=== PATIENT | female | born 1945 | race Caucasian/White ===

== ENCOUNTER → 2023-05-02 17:11 | Outpatient (REF) | payer MEDICARE, SELFPAY | LOC: MRI 3T 17:11 | PROVIDERS: ATTENDING PHYSICIAN Orthopaedic Surgery; FAMILY PHYSICIAN Internal Medicine | DX: M25.561 Pain in right knee (principal) | CPT/HCPCS: 73721 ==

== ENCOUNTER → 2023-05-15 12:51 | Outpatient (REF) | payer MEDICARE, SELFPAY ==
[2023-05-15 13:43] LABS: Hematocrit 35.8 % (37.0-47.0); Hemoglobin 12.3 g/dL (12.0-16.0); Mean Corp Hgb Conc. 34.4 g/dL (33.0-37.0); Mean Corpuscular Hgb 32.5 pg (27.0-31.0); Mean Corpuscular Volume 94.7 fL (81.0-99.0); Mean Platelet Volume 9.9 fL (7.4-10.4); Platelet Count 171 10^3/uL (130-400); Red Blood Cell Count 3.78 10^6/uL (4.20-5.40); Red Cell Dist. Width 12.5 % (11.5-14.5); White Blood Cell Count 3.5 10^3/uL (4.8-10.8)
== END ==
LOC: SDSPAT 12:51
PROVIDERS: ATTENDING PHYSICIAN Specialist; FAMILY PHYSICIAN Internal Medicine; OTHER PHYSICIAN Internal Medicine Rheumatology
DX: Z01.818 Encounter for other preprocedural examination (principal)
CPT/HCPCS: 36415; 85027

== ENCOUNTER 2023-05-23 06:14 | Day surgery (SDC) | payer MEDICARE, SELFPAY ==
[2023-05-15 13:18] VITALS: BMI 25.6
[2023-05-23] VITALS (8 sets, daily range): BP systolic 99–133; BP diastolic 51–69; BMI 25.6
[2023-05-23] MEDS: NORMOSOL-R 1000 IV (06:40)
[2023-05-23] MEDS: TYLENOL 1000 MG PO (06:48)
[2023-05-23] MEDS: CELEBREX 200 MG PO (06:48)
== END 2023-05-23 10:05 | disposition home or self-care (01) ==
LOC: SDS 06:14
PROVIDERS: ATTENDING PHYSICIAN Specialist; FAMILY PHYSICIAN Internal Medicine
DX: S83.231A Complex tear of medial meniscus, current injury, right knee, initial encounter (principal); X58.XXXA Exposure to other specified factors, initial encounter; M94.261 Chondromalacia, right knee
CPT/HCPCS: 29881

== ENCOUNTER → 2023-08-09 12:42 | Outpatient (REF) | payer MEDICARE, SELFPAY | LOC: HWRAD 12:42 | PROVIDERS: ATTENDING PHYSICIAN Internal Medicine Rheumatology; FAMILY PHYSICIAN Internal Medicine | DX: M81.0 Age-related osteoporosis without current pathological fracture (principal) | CPT/HCPCS: 77080 ==

== ENCOUNTER 2023-09-17 08:26 | Emergency (ER) | payer MEDICARE, SELFPAY ==
[2023-09-17] VITALS (7 sets, daily range): BP systolic 101–121; BP diastolic 55–93; BMI 25.0
[2023-09-17 11:04] LABS: % Basophils 0.7 % (0-2); % Eosinophils 1.1 % (0-6); % Immature Granulocytes 0.4 % (0-0.5); % Lymphocytes 27.6 % (20.5-51.1); % Neutrophils 62.2 % (42.2-75.2); Absolute Eosinophils 0.1 10^3/uL (0-0.7); Absolute Lymphocytes 1.2 10^3/uL (1.2-3.4); Absolute Monocytes 0.4 10^3/uL (0.1-0.6); Absolute Neutrophils 2.8 10^3/uL (1.4-6.5); Hematocrit 36.4 % (37.0-47.0); Hemoglobin 12.8 g/dL (12.0-16.0); Mean Corp Hgb Conc. 35.2 g/dL (33.0-37.0); Mean Corpuscular Hgb 32.9 pg (27.0-31.0); Mean Corpuscular Volume 93.6 fL (81.0-99.0); Mean Platelet Volume 9.6 fL (7.4-10.4); Nucleated Red Blood Cells % 0 %; Platelet Count 172 10^3/uL (130-400); Red Blood Cell Count 3.89 10^6/uL (4.20-5.40); Red Cell Dist. Width 12.7 % (11.5-14.5); White Blood Cell Count 4.5 10^3/uL (4.8-10.8)
[2023-09-17 11:05] LABS: Urine Albumin Negative (Neg - Trace); Urine Bilirubin Negative (Negative); Urine Character Clear (Clear); Urine Color Yellow; Urine Glucose Negative (Negative); Urine Ketone Negative (Negative); Urine Leukocyte 2+ (Negative); Urine Nitrite Negative (Negative); Urine Occult Blood Trace (Negative); Urine Urobilinogen Negative (Neg - 1+)
[2023-09-17 11:12] LABS: Urine Red Blood Cell 0-2 /HPF (0-2); Urine White Cell 0-2 /HPF (0-5)
--- NOTE | 2023-09-17 11:23 | ED.GENMED ---
History of Present Illness
General
Chief Complaint: Abdominal Symptoms
Source: patient
Exam Limitations: none
Time Seen by Provider: 09/17/23 10:51
Nursing documentation reviewed up to this point in time: agreed with
History of Present Illness
History of Present Illness:
Patient is a 78-year-old female with past medical history of A-fib on Eliquis presents to the ER for evaluation of right lower quadrant pain. She reports she noticed this a couple weeks ago which is on and off however is now gotten more persistent
and stronger. He woke up a couple times last night. She is nauseous with eating but is not vomited. She denies any urinary frequency urgency or dysuria. Denies any diarrhea constipation. No prior abdominal surgeries. She does admit to having
started a core exercise program and noticed that the pain started during this time of doing abdominal core work though she denies exact injury.
Past History
Past History
ED Past Medical History: HTN
ED Past Surgical History: Orthopedic
Social History
Tobacco: Non-smoker
Personal:
Living: with family
Family History
Family History: Negative Diabetes
Review of Systems
Review of Systems
Allergies reviewed?: Yes
All Other Systems: ROS reviewed and negative except as documented in HPI and ROS
Constitutional: Reports no symptoms; Denies fever, fatigue or chills
Respiratory: Reports no symptoms
Cardiac: Reports no symptoms
ABD/GI: Reports abdominal pain and nausea; Denies vomiting, diarrhea or constipated
: Reports no symptoms; Denies dysuria, flank pain, urgency or discharge
Musculoskeletal: Reports no symptoms
Skin: Reports no symptoms
Neurological: Reports no symptoms
Psychiatric: Reports no symptoms
Phy Exam
General Physical Exam
General Presentation: no apparent distress
General age: appears stated age
General Skin: warm and dry
General Habitus: normal
General Mental: alert
General Hydration: appears well hydrated
Gastrointestinal Exam
Gastrointestinal Exam: soft and other (mild rlq tenderness)
Neurological Exam
Neurological Exam: alert and oriented x3
Musculoskeletal Exam
Musculoskeletal Exam: full ROM
Skin Exam
Skin Exam: normal color and warm/dry
Psychiatric Exam
Psychiatric Exam: normal mood/affect
Course
Orders/Labs/Results
Orders:
Orders
09/17/23 10:56
Basic Metabolic Panel Urgent
Complete Blood Count/With Diff Urgent
Urinalysis Reflex To Culture Urgent
Date Specimen was Collected: 09/17/23
Time Specimen was Collected: 10:55
Urine Microscopic Reflex Cult Urgent
Urine Culture Urgent
HESHAM Source: U
Specimen Description:
Date Specimen was Collected: 09/17/23
Time Specimen was Collected: 10:55
09/17/23 11:25
CT Abd/pel W Iv And Oral Contr Urgent
Comment:
Reason For Exam: rlq pain
Iohexol [Omnipaque] See Protocol PO NOW STA
Abnormal Lab Results
09/17/23
10:56
WBC 4.5 L 10^3/uL
(4.8-10.8)
RBC 3.89 L 10^6/uL
(4.20-5.40)
Hct 36.4 L %
(37.0-47.0)
MCH 32.9 H pg
(27.0-31.0)
BUN 19 H mg/dl
(7-17)
Creatinine 0.5 L mg/dL
(0.6-1.0)
Ur Occult Blood Reflex Trace A
(Negative)
Leukocyte Esterase Rfl 2+ A
(Negative)
09/17/23 10:56
09/17/23 10:56
Vital Signs
Initial and Last Documented VS:
Initial Vital Signs
Temp Pulse Resp BP Pulse Ox
97.8 F 71 17 113/93 100
09/17/23 08:31 09/17/23 08:31 09/17/23 08:31 09/17/23 08:31 09/17/23 08:31
Last Documented Vital Signs
Temp Pulse Resp BP Pulse Ox
97.8 F 71 17 104/58 99
09/17/23 08:31 09/17/23 08:31 09/17/23 08:31 09/17/23 13:57 09/17/23 13:57
MDM/Problems Addressed
MDM/Problems Addressed:
Patient is a 78-year-old female who presented with right lower quadrant pain for the past several weeks not associate with nausea vomiting fever chills no urinary symptoms. She presents awake alert no acute distress very minimally tender. She does
mention that she recently started a core exercise program and symptoms started after that. CAT scan is unremarkable mild constipation. Symptoms are also likely muscular from starting core exercises. She is no acute stress and very well-appearing
discussed her close outpatient follow-up she may start rest for the next week and return if any worsening of symptoms.
*Radiology
Radiology exam reviewed: radiology read reviewed
*Pulse Oximetry
Patient hypoxic: no
*Critical Care Note
Total Time (30-74mins, 75-104mins- exclusive of procedures): Not Applicable
ED Attending Note
-
Portions of this chart may have been created with voice recognition software.� Occasional wrong word or��sound alike� substitutions may have occurred due to the inherent limitations of voice recognition software.
Discharge Plan
Departure
Patient Disposition: Home (Routine Discharge)
Date of Disposition: 09/17/23
Time of Disposition: 15:35
Patient with high blood pressure during this ER visit?: No
Discharge Problem:
Abdominal pain
Instructions: Constipation, Adult (DC), Abdominal Pain
Prescriptions:
No Action
Prolia 60 mg/mL Syringe
60 mg SC [id number]
Rx Instructions:
Next dose due in September 2023
therapeutic multivitamin Tablet
1 tab PO DAILY
calcium carbonate 500 mg calcium (1,250 mg) Tablet
1,000 mg PO DAILY
cholecalciferol (vitamin D3) [Vitamin D3] 25 mcg (1,000 unit) Tablet
25 mcg PO DAILY
Eliquis 5 mg Tablet
5 mg PO BID Qty: 60 0RF
vitamin B complex [B Complex] Capsule
1 cap PO DAILY
escitalopram oxalate 10 mg Tablet
10 mg PO PRN PRN (Reason: depression)
metoprolol succinate 25 mg tablet extended release 24 hr
12.5 mg PO DAILY
Referrals:
Alexus Singer MD [Family Provider] -
Activity Restrictions/Additional Instructions:
As discussed this pain is likely muscular. Avoid core exercises for the next week . You may gently walk. CAT scan does show some mild constipation you may start MiraLAX.
You may take Tylenol for discomfort. Follow-up with your family doctor in next several days for reevaluation of symptoms and return if any worsening of symptoms.
Interventions
Interventions:
*Risk Screen - Suicide Last Done: 09/17/23 08:35
*General Assessment Last Done: 09/17/23 08:35
*Neglect/Abuse Screening Last Done: 09/17/23 08:35
*ED COVID-19 Vaccine History Last Done: 09/17/23 08:35
QP-Hmxvqk-Ijardkcyaj Assessment Last Done: 09/17/23 10:43
Discharge Date and Time
Print Language: LITHUANIAN
[2023-09-17 11:31] LABS: Blood Urea Nitrogen 19 mg/dl (7-17); Calcium 9.9 mg/dl (8.4-10.2); Carbon Dioxide 24 mmol/L (22-30); Chloride 103 mmol/L (98-107); Estimated Creatinine Clearance 68 ml/min; Glucose 89 mg/dl (70-99); Sodium 136 mmol/L (135-145); eGFR > 60.00
[2023-09-17] MEDS: OMNIPAQUE 50 ML PO (12:13)
== END 2023-09-17 15:53 | disposition home or self-care (01) ==
LOC: EMR 08:26
PROVIDERS: EMERGENCY PHYSICIAN Emergency Medicine; FAMILY PHYSICIAN Internal Medicine
DX: I48.91 Unspecified atrial fibrillation (principal)
CPT/HCPCS: 99285; 74177; 80048; 81003; 81015; 85025; 87086; Q9967

== ENCOUNTER → 2024-02-16 09:22 | Outpatient (REF) | payer MEDICARE, SELFPAY | LOC: WDC 09:22 | PROVIDERS: ATTENDING PHYSICIAN Nurse Practitioner Family; FAMILY PHYSICIAN Internal Medicine | DX: N64.4 Mastodynia (principal) | CPT/HCPCS: 76642; 77062; 77066 ==

== ENCOUNTER → 2024-03-08 09:57 | Outpatient (REF) | payer MEDICARE, SELFPAY | LOC: HWRAD 09:57 | PROVIDERS: ATTENDING PHYSICIAN Internal Medicine | DX: R07.89 Other chest pain (principal); I10 Essential (primary) hypertension; D68.69 Other thrombophilia | CPT/HCPCS: 71250 ==

== ENCOUNTER → 2024-03-28 07:22 | Outpatient (REF) | payer MEDICARE, SELFPAY | LOC: HWRCS 07:22 | PROVIDERS: ATTENDING PHYSICIAN Internal Medicine Cardiovascular Disease; FAMILY PHYSICIAN Internal Medicine | DX: R07.89 Other chest pain (principal) | CPT/HCPCS: 78452; 93017; A9500 ==

== ENCOUNTER → 2024-04-25 08:46 | Outpatient (REF) | payer MEDICARE, SELFPAY | LOC: RAD 08:46 | PROVIDERS: ATTENDING PHYSICIAN Internal Medicine Gastroenterology; FAMILY PHYSICIAN Internal Medicine | DX: R07.89 Other chest pain (principal) | CPT/HCPCS: 76700 ==

== ENCOUNTER 2024-05-10 06:24 | Day surgery (SDC) | payer MEDICARE, SELFPAY | END 2024-05-10 14:33 | disposition home or self-care (01) | LOC: GI 06:24 | PROVIDERS: ATTENDING PHYSICIAN Internal Medicine Gastroenterology; FAMILY PHYSICIAN Internal Medicine | DX: R19.4 Change in bowel habit (principal); K57.30 Diverticulosis of large intestine without perforation or abscess without bleeding; K44.9 Diaphragmatic hernia without obstruction or gangrene; R12 Heartburn; K63.5 Polyp of colon; D12.4 Benign neoplasm of descending colon | CPT/HCPCS: 45385; 43235; 88305 ==

== ENCOUNTER 2024-06-26 06:18 | Day surgery (SDC) | payer MEDICARE, SELFPAY ==
[2024-06-26 12:16] VITALS: BMI 25.1
[2024-06-26 12:17] VITALS: BMI 25.1
[2024-06-26 12:18] VITALS: BP 130/63
[2024-06-26 16:15] VITALS: BP 109/50
[2024-06-26 16:30] VITALS: BP 101/78
[2024-06-26 16:38] VITALS: BP 110/58
== END 2024-06-26 16:50 | disposition home or self-care (01) ==
LOC: GI 06:18
PROVIDERS: ATTENDING PHYSICIAN Internal Medicine Gastroenterology
DX: K64.0 First degree hemorrhoids (principal); K57.30 Diverticulosis of large intestine without perforation or abscess without bleeding; D12.4 Benign neoplasm of descending colon; K63.89 Other specified diseases of intestine
CPT/HCPCS: 45390; 45385; 88305

== ENCOUNTER → 2024-10-16 11:44 | Outpatient (REF) | payer MEDICARE, SELFPAY | LOC: RAD 11:44 | PROVIDERS: ATTENDING PHYSICIAN Internal Medicine | DX: R07.89 Other chest pain (principal); Z87.891 Personal history of nicotine dependence | CPT/HCPCS: 71250 ==

== ENCOUNTER 2024-12-23 06:25 | Day surgery (SDC) | payer MEDICARE, SELFPAY | END 2024-12-23 11:28 | disposition home or self-care (01) | LOC: GI 06:25 | PROVIDERS: ATTENDING PHYSICIAN Internal Medicine Gastroenterology; FAMILY PHYSICIAN Internal Medicine | DX: Z12.11 Encounter for screening for malignant neoplasm of colon (principal); K57.30 Diverticulosis of large intestine without perforation or abscess without bleeding; K64.8 Other hemorrhoids; K62.89 Other specified diseases of anus and rectum; Z98.890 Other specified postprocedural states; Z86.0101 Personal history of adenomatous and serrated colon polyps | CPT/HCPCS: 45378 ==